=== PATIENT | female | born 1995 | race Asian ===

== ENCOUNTER 2016-08-28 18:18 | Emergency (ER) | payer OTHER ==
[~2016-08-28] VITALS: Ht 170.2 cm; Wt 70.4 kg
[2016-08-28 18:39] VITALS: TEMP 36.6; Ht 170.2 cm; Wt 70.4 kg
[2016-08-28] MEDS ORDERED: CYCLOBENZAPRINE HCL 10 MG TAB PO STA (18:48)
[2016-08-28] MEDS ORDERED: KETOROLAC TROMETHAMINE 60 MG/2 ML VIAL IM STA (18:48)
--- NOTE | 2016-08-28 19:45 | DIAGNOSTIC IMAGING REPORT ---
LUMBAR SPINE 5 VIEWS HISTORY: low back pain/fall COMPARISON: None. FINDINGS: There is no fracture. No subluxation. Disc spaces are preserved. IMPRESSION: No fracture or subluxation within the lumbar spine. Electronically signed by: Eliseo Nick M.D. 08/28/2016 7:44 PM Dictated Date/Time: 08/28/2016 7:44 PM
--- NOTE | 2016-08-28 19:57 | EMERGENCY ROOM VISIT NOTE ---
ED Visit Note First contact with patient: 18:42 CHIEF COMPLAINT: Low back pain HISTORY OF PRESENT ILLNESS: This 21-year-old female presents the ER with chief complaint of low back pain. The patient states that she was drinking Sunday evening and fell landing onto her buttocks and lower back. Since that time she has pain across the lower back. Today it seems like it is more on the left side than the right side. The patient has only taken ibuprofen on one occasion for the pain. She has also been trying ice and heat without any relief. The patient denies any pain radiating down her legs or any numbness and tingling. The patient denies any saddle anesthesia or loss of bowel or bladder control. REVIEW OF SYSTEMS: 6 system review was performed and was negative unless stated otherwise in history of present illness. PMH: The patient is healthy; there is no significant medical or surgical history. SOCIAL HISTORY: Patient lives at home. PHYSICAL EXAM: Vital Signs normal: Reviewed Nurse's notes and agree. GEN.: 21- year-old female appears in no acute distress. MENTAL STATUS: Alert and oriented 3. LUMBAR SPINE: No gross bony abnormality noted. Patient is nontender to palpation over the spinous processes. He is tender to palpation over the left paravertebral region, left side nontender. She has full range of motion of the lumbar spine with pain elicited with flexion, extension and left lateral bending. Muscle strength is 5 out of 5 bilateral lower extremities and symmetrical. NEURO: Patient is able to heel and toe walk without difficulty. I lateral patellar and Achilles reflexes are 2+. Sensation is intact to pinprick bilateral lower extremities. Negative straight leg raise bilaterally. EMERGENCY DEPARTMENT COURSE: The patient was evaluated. The patient was given Flexeril 10 mg by mouth and Toradol 60 mg IM. X-ray of the lumbar spine was ordered and interpreted by myself and the radiologist. DIAGNOSTICS:LUMBAR SPINE 5 VIEWS HISTORY: low back pain/fall COMPARISON: None. FINDINGS: There is no fracture. No subluxation. Disc spaces are preserved. IMPRESSION: No fracture or subluxation within the lumbar spine. Electronically signed by: Eliseo Nick M.D. 08/28/2016 7:44 PM Dictated Date/Time: 08/28/2016 7:44 PM The patient was informed of the findings. The patient was offered prescription pain medication but declined. I will give her a muscle relaxer to take at home. The patient was in agreement with treatment plan was discharged home in stable condition. DIAGNOSIS: Lumbar strain DISCHARGE INSTRUCTIONS AND TREATMENT: Ibuprofen 600 mg every 6 hours with food for pain. Take Flexeril as needed for muscle pain or spasms. Do not drive while taking the Flexeril. May also try topical [id number] icy hot, [place] etc. Avoid any strenuous exercise until pain has improved. Slowly increase physical activity. Current/Historical Medications No Active Prescriptions or Reported Meds Allergies Coded Allergies: No Known Allergies (Unverified , 06/14/15) Vital Signs Date Time Temp Pulse Resp B/P Pulse Ox O2 Delivery O2 Flow Rate FiO2 08/28/16 18:39 36.6 78 18 111/67 96 Room Air Medications Administered Medications (Trade) Dose Ordered Sig/Jessica Route Start Time Stop Time Status Last Admin Dose Admin Ketorolac Tromethamine (Toradol Inj) 60 mg NOW STAT IM 08/28/16 18:48 08/28/16 18:50 DC 08/28/16 19:00 60 MG Cyclobenzaprine HCl (Flexeril Tab) 10 mg NOW STAT PO 08/28/16 18:48 08/28/16 18:50 DC 08/28/16 19:00 10 MG Departure Information Prescriptions No Active Prescriptions or Reported Meds Patient Instructions My [facility]
[2016-08-28] MEDS ORDERED: CYCL10TA6 PO (19:58)
[2016-08-28 20:00] VITALS: BP 126/85; PULSE 71; O2SAT 100
== END 2016-08-28 20:11 | disposition home or self-care (01) ==
LOC: C.EDB 18:19 → C.EDD 20:11
DX: S39.012A Strain of muscle, fascia and tendon of lower back, initial encounter (principal); W19.XXXA Unspecified fall, initial encounter